=== PATIENT | male | born 1940 | race African-American/Black ===

== ENCOUNTER 2019-05-05 11:39 | Emergency (ER) | payer OTHER, MEDICAID ==
[~2019-05-05] VITALS: Ht 175.3 cm; Wt 75.0 kg
[2019-05-05] MEDS ORDERED: KETOROLAC 60MG/2ML VIAL IM STA (11:50)
[2019-05-05 13:05] LABS: BASOPHILS % 0.2 % (0.0-2.0); HEMATOCRIT. 43.2 % (42.0-52.0); HEMOGLOBIN. 14.8 g/dL (14.0-18.0); LYMPHOCYTES % 45.9 % (20.0-50.0); MEAN CORPUSCULAR HEMOGLOBIN 31.1 pg (28.0-32.0); MEAN CORPUSCULAR VOLUME 90.4 fL (80.0-94.0); MEAN PLATELET VOLUME 10.2 fl (7.4-10.4); MONOCYTES % 10.8 % (2.0-8.0); NEUTROPHILS % 41.1 % (40.0-76.0); PLATELET 162 x1000/uL (130-400); RED BLOOD CELL COUNT 4.77 mill/uL (4.7-6.1); RED CELL DISTRIBUTION WIDTH 13.1 % (11.6-14.6)
[2019-05-05 13:12] LABS: CHLORIDE 110 mEq/L (98-107)
[2019-05-05 13:22] LABS: CREATINE KINASE 88 IU/L (39-308)
[2019-05-05 14:03] VITALS: BP 168/78
== END 2019-05-05 14:15 | disposition home or self-care (01) ==
LOC: ER 11:39
DX: S20.20XA Contusion of thorax, unspecified, initial encounter (principal); I10 Essential (primary) hypertension; V43.52XA Car driver injured in collision with other type car in traffic accident, initial encounter; Y93.89 Activity, other specified; Y92.488 Other paved roadways as the place of occurrence of the external cause
CPT/HCPCS: 36415; 71045; 80053; 82550; 84484; 85025; 93005; 96372; 99284; J1885